=== PATIENT | female | born 1940 | race Caucasian/White ===

== ENCOUNTER → 2016-10-09 | Outpatient (CLI) | payer OTHER | PROVIDERS: ATTEND Otolaryngology | DX: R13.10 Dysphagia, unspecified (principal); R49.0 Dysphonia; R47.9 Unspecified speech disturbances | CPT/HCPCS: 92611-GN ==

== ENCOUNTER → 2017-06-05 | Outpatient (CLI) | payer OTHER | LOC: FIMAGING 14:15 | PROVIDERS: ATTEND Family Medicine | DX: Z12.31 Encounter for screening mammogram for malignant neoplasm of breast (principal) | CPT/HCPCS: G0202 ==

== ENCOUNTER → 2017-07-29 | Outpatient (CLI) | payer OTHER | LOC: FIMAGING 14:22 | PROVIDERS: ATTEND Internal Medicine Cardiovascular Disease | DX: R06.02 Shortness of breath (principal); M71.22 Synovial cyst of popliteal space [Baker], left knee; M71.21 Synovial cyst of popliteal space [Baker], right knee ==

== ENCOUNTER → 2017-10-08 | Outpatient (CLI) | payer OTHER | LOC: FIMAGING 13:22 → EDSTATUS 13:24 | PROVIDERS: ATTEND Internal Medicine Cardiovascular Disease | DX: R06.00 Dyspnea, unspecified (principal); M41.9 Scoliosis, unspecified ==

== ENCOUNTER → 2017-10-13 | Outpatient (CLI) | payer OTHER | LOC: FIMAGING 10:24 | PROVIDERS: ATTEND Internal Medicine Critical Care Medicine | DX: J98.4 Other disorders of lung (principal); M41.9 Scoliosis, unspecified ==

== ENCOUNTER → 2018-06-22 | Outpatient (CLI) | payer OTHER | LOC: FIMAGING 06:49 | PROVIDERS: ATTEND Physician Assistant | DX: Z13.820 Encounter for screening for osteoporosis (principal); M81.0 Age-related osteoporosis without current pathological fracture; E78.5 Hyperlipidemia, unspecified; R93.5 Abnormal findings on diagnostic imaging of other abdominal regions, including retroperitoneum ==

== ENCOUNTER → 2018-06-23 | Outpatient (CLI) | payer OTHER | END | disposition home or self-care (01) | LOC: FIMAGING 15:32 | PROVIDERS: ATTEND Physician Assistant | DX: Z12.31 Encounter for screening mammogram for malignant neoplasm of breast (principal) ==